=== PATIENT | male | born 1960 | race Caucasian/White ===

== ENCOUNTER 2020-05-24 22:07 | Inpatient (IN) ==
[2020-05-24] MEDS ORDERED: ASPIRIN CHEW 324 MG PO STA (22:22)
[2020-05-24 22:39] LABS: Basophils # (auto) 0.04 K/uL (0-0.2); Basophils % (auto) 0.4 %; Eosinophils % (auto) 4.4 %; Hematocrit (blood only) 42.7 % (42-52); Hemoglobin 14.5 g/dL (14.0-18.0); Immature Granulocytes # (auto) 0.02 K/uL (0.00-0.02); Immature Granulocytes % (auto) 0.2 %; Lymphocytes # (auto) 1.68 K/uL (1.2-3.4); Lymphocytes % (auto) 18.5 %; Mean Corpuscular Hemoglobin 30.7 pg (25-34); Mean Corpuscular Volume 90.5 fL (80-100); Mean Platelet Volume 9.8 fL (7.4-10.4); Monocytes # (auto) 0.52 K/uL (0.11-0.59); Monocytes % (auto) 5.7 %; Neutrophils # (auto) 6.42 K/uL (1.4-6.5); Neutrophils % (auto) 70.8 %; Platelet Count 253 K/uL (130-400); RDW Standard Deviation 42.9 fL (36.4-46.3); Red Blood Count 4.72 M/uL (4.7-6.1); White Blood Count 9.08 K/uL (4.8-10.8)
[2020-05-24 22:44] LABS: D Dimer 330 ug/L FEU (0-500); Partial Thromboplastin Time 29.2 Seconds (21.0-31.0); Prothrombin Time 10.3 Seconds (9.0-12.0)
[2020-05-24 22:48] LABS: Albumin Level 3.7 gm/dl (3.4-5.0); BUN Creatinine Ratio 9.4 (10-20); Creatinine Clr Calc Pharmacy 84.1 ml/min; Est GFR (Non-African American) 70.8; Potassium 3.7 mmol/L (3.5-5.1)
[2020-05-24 22:55] LABS: Bilirubin,Total 0.3 mg/dl (0.2-1); Globulin 3.5 gm/dl (2.5-4.0); Total Protein 7.2 gm/dl (6.4-8.2); Troponin I 0.751 ng/ml (0-0.045)
[2020-05-24] MEDS ORDERED: MoRPHine SULFATE 2 MG/ML CARP IV STA (23:00)
[2020-05-24] MEDS ORDERED: HEPARIN SODIUM/DEXTROSE 25,000 UNITS/500 ML BAG IV SCH (23:45)
[2020-05-24] MEDS ORDERED: Heparin IV Low Dose WITH Bolus STA (23:50)
[2020-05-24] MEDS ORDERED: NITROGLYCERIN 2% OINTMENT 30GM TUBE EXT ONE (23:51)
--- NOTE | 2020-05-25 00:06 | Emergency Department Note ---
History of Present Illness General Chief Complaint: Chest Pain Stated Complaint: CHEST PAIN Time Seen by Provider: 05/24/20 22:15 History of Present Illness Provider Complaint: chest pain Time: 20:00 Duration: improved Onset: during rest Pain Location: substernal Pain Radiation: neck Severity: mild Maximum Pain Intensity: 4 Current Pain Intensity: 4 Quality: + aching Relieved By: + nitroglycerin (3 sublingual nitro given by EMS) and + other (Morphine 4 mg given by EMS) Exacerbated By: + nothing Context: no recent illness, no recent surgery, no recent immobilization, no recent travel, no trauma/injury and no history of DVT/PE Associated symptoms: + dyspnea; no nausea, no vomiting, no diaphoresis and no syncope Treatments prior to arrival: nitroglycerin (3 sublingual nitroglycerin) Patient states he has a history of multiple stents and CABG. Patient states he has a history of cocaine abuse but has not used cocaine recently. 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 Home Medications Home Medications Medication Instructions Recorded Confirmed Type Statin Pill 1 tab PO DAILY 05/24/20 05/24/20 History Unknown Bp Pill 1 tab PO DAILY 05/24/20 05/24/20 History aspirin [Aspir-81] 81 mg PO DAILY 05/24/20 05/24/20 History duloxetine [Cymbalta] 0 mg PO DAILY 05/24/20 05/24/20 History glipizide 0 mg PO DAILY 05/24/20 05/24/20 History isosorbide mononitrate [Imdur] 0 mg PO DAILY 05/24/20 05/24/20 History metoprolol succinate 0 mg PO DAILY 05/24/20 05/24/20 History ticagrelor [Brilinta] 0 mg PO BID 05/24/20 05/24/20 History Allergies Allergy/AdvReac Type Severity Reaction Status Date / Time No Known Allergies Allergy Unverified 05/24/20 23:09 Past Med/Surg History Medical History (Updated 05/25/20 @ 00:13 by Jefe Granado) CAD (coronary artery disease) HLD (hyperlipidemia) HTN (hypertension) No pertinent family history Surgical History (Updated 05/25/20 @ 00:07 by Jefe Granado) H/O heart artery stent S/P CABG (coronary artery bypass graft) Social History (Updated 10/16/20 @ 00:07 by Jefe Call Smoking Status: Current every day smoker Tobacco Type: Cigarettes Hx Substance Use: Yes Non-Prescribed Medications: Crack / Cocaine Feels Safe at Home: Yes Review of Systems A total of 10 systems reviewed and were otherwise negative Physical Exam Vital Signs Vital Signs - 24 hr 05/24/20 22:25 Temperature 36.6 C Temperature Source Oral Pulse Rate 71 Respiratory Rate 16 Respiratory Effort / Characteristics Non-Labored Spontaneous Respiratory Depth Normal Respiratory Pattern Regular Blood Pressure 145/95 H Blood Pressure Mean 111 Pulse Oximetry 96 Oxygen Delivery Method Room Air Sepsis Recent Fever Within 48 Hours No Sepsis New/Unexplained Change in Mental Status N/A Sepsis Action Taken by Nursing No Action Required Physical Exam GENERAL: He is oriented to person, place, and time. He appears well-developed and well-nourished. He does not appear distressed. HENT: Exam performed. - Head: Normocephalic and atraumatic. - Right Ear: External ear normal. No mastoid tenderness. - Left Ear: External ear normal. No mastoid tenderness. - Mouth/Throat: The oropharynx is clear and moist. No trismus in the jaw. No dental abscesses or uvula swelling. No oropharyngeal exudate or tonsillar abscesses. EYES: Conjunctivae and EOM are normal. Pupils are equal, round, and reactive to light. Right eye exhibits no discharge. Left eye exhibits no discharge. No scleral icterus. NECK: Normal range of motion. Neck supple. No JVD present. No spinous process tenderness present. No carotid bruit present. No rigidity. No tracheal deviation and normal range of motion present. No Brudzinski's sign and no Kernig's sign noted. CV: Normal rate, regular rhythm, normal heart sounds and intact distal pulses. There is no peripheral edema. Palpable radial pulses bue. PULM/CHEST: Effort normal and breath sounds normal. No respiratory distress. No stridor. He has no wheezes. He has no rales. - Chest Wall: He exhibits no tenderness. ABD: The abdomen is soft. Bowel sounds are normal. He has no distension. No mass is present. There is no tenderness. There is no rebound, no guarding, no Betancourt's sign and no tenderness at McBurney's point. Rovsig negative. MUSC/SKEL: Normal range of motion. There is no peripheral edema, tenderness or deformity. LYMPH: No cervical adenopathy. NEURO: He is alert and oriented to person, place, and time. He has normal strength. No cranial nerve deficit or sensory deficit. Coordination and gait normal. GCS eye subscore is 4. GCS verbal subscore is 5. GCS motor subscore is 6. Cerebellar tests wnl. SKIN: Skin is warm and dry. He is not diaphoretic. PSYCH: He has a normal mood and affect. Behavior is normal. Judgment and thought content normal. Course Course 2214: The patient was evaluated in room B7. A complete history and physical exam was performed. Cardiac monitoring: An order was placed for continuous cardiac monitoring. The monitor shows a rate of 70 with sinus rhythm 0008: Vital signs stable. Labs show an elevated troponin. Patient was reporting increasing pain so another dose of morphine was given. Patient was started on Nitropaste. Patient will be started on heparin for NSTEMI. Patient admitted to [facility] Dr. Garcia. Administered Medications Discontinued Medications Aspirin (Aspirin Chew 324 Mg) 324 mg PO NOW STA Stop: 05/24/20 22:23 Last Admin: 05/24/20 22:32 Dose: 324 mg Documented by: [id number] Morphine Sulfate (Morphine Sulfate 2 Mg/Ml Carp) 2 mg IV NOW STA Stop: 05/24/20 23:01 Last Admin: 05/24/20 23:15 Dose: 2 mg Documented by: [id number] Medical Decision Making Laboratory Data Result diagrams: 05/24/20 22:26 05/24/20 22:26 Labs: Lab Results 05/24/20 05/24/20 05/24/20 Range/Units 22:26 22:26 22:26 WBC 9.08 (4.8-10.8) K/uL RBC 4.72 (4.7-6.1) M/uL Hgb 14.5 (14.0-18.0) g/dL Hct 42.7 (42-52) % MCV 90.5 (80-100) fL MCH 30.7 (25-34) pg MCHC 34.0 (32-36) g/dL RDW Std Deviation 42.9 (36.4-46.3) fL RDW Coeff of Mehdi 13.0 (11.5-14.5) % Plt Count 253 (130-400) K/uL MPV 9.8 (7.4-10.4) fL Immature Gran % (Auto) 0.2 % Neut % (Auto) 70.8 % Lymph % (Auto) 18.5 % Vance % (Auto) 5.7 % Eos % (Auto) 4.4 % Baso % (Auto) 0.4 % Neut # (Auto) 6.42 (1.4-6.5) K/uL Lymph # (Auto) 1.68 (1.2-3.4) K/uL Vance # (Auto) 0.52 (0.11-0.59) K/uL Eos # (Auto) 0.40 (0-0.5) K/uL Baso # (Auto) 0.04 (0-0.2) K/uL Immature Gran # (Auto) 0.02 (0.00-0.02) K/uL PT 10.3 (9.0-12.0) Seconds INR 1.0 (0.9-1.1) APTT 29.2 (21.0-31.0) Seconds PTT Ratio 1.0 D-Dimer 330 (0-500) ug/L FEU Sodium 138 (136-145) mmol/L Potassium 3.7 (3.5-5.1) mmol/L Chloride 106 (98-107) mmol/L Carbon Dioxide 26 (21-32) mmol/L Anion Gap 7.0 (3-11) BUN 11 (7-18) mg/dl Creatinine 1.13 (0.6-1.4) mg/dl Est Cr Clr Drug Dosing 84.1 ml/min Est GFR ( Amer) 82.0 Est GFR (Non-Af Amer) 70.8 BUN/Creatinine Ratio 9.4 L (10-20) Glucose 271 H (70-99) mg/dl Calcium 10.0 (8.5-10.1) mg/dl Total Bilirubin 0.3 (0.2-1) mg/dl AST 21 (15-37) U/L ALT 30 (12-78) U/L Alkaline Phosphatase 82 (45-117) U/L Troponin I 0.751 H* (0-0.045) ng/ml Total Protein 7.2 (6.4-8.2) gm/dl Albumin 3.7 (3.4-5.0) gm/dl Globulin 3.5 (2.5-4.0) gm/dl Albumin/Globulin Ratio 1.0 (0.9-2) Lipase 137 (73-393) U/L Imaging Data Chest x-ray: Radiologist's impression: Chest x-ray negative. Airway clear. No pneumothorax. No consolidation. No cardiomegaly or cephalization.. No free air under the diaphragm. No fractures of the skeletal structures. ECG Data Indication: chest pain Rate (beats per minute): 71 Rhythm: normal sinus Findings: + LBBB, + RBBB and + T-wave inversion (Leads aVL, V1, V2); no ST depression and no ST elevation Additional Comments: DE and QTc intervals within normal limits. QRS 160. Bifascicular block present. [facility] Narrative 2215: The patient was evaluated in room B7. A complete history and physical exam was performed. Cardiac monitoring: An order was placed for continuous cardiac monitoring. The monitor shows a rate of 70 with sinus rhythm 0008: Vital signs stable. Labs show an elevated troponin. Patient was reporting increasing pain so another dose of morphine was given. Patient was started on Nitropaste. Patient will be started on heparin for NSTEMI. Patient admitted to [facility] Dr. Garcia. Impression & Plan Non-ST elevation (NSTEMI) myocardial infarction Critical Care Time Critical Care Time: Yes Total Critical Care Time: 59 I have personally spent greater than 59 minutes of critical care time in the direct management of this patient. This includes bedside care, interpretation of diagnostic studies, and testing, discussion with consultants, patient, and family members, and other required patient management activities. This 59 minutes is in excess of all separately billable procedures. Discharge Plan Visit Data Chief Complaint: Chest Pain Stated Complaint: CHEST PAIN ED Provider: Jefe Granado Discharge Problem: Non-ST elevation (NSTEMI) myocardial infarction Patient Disposition: Admitted As Inpatient Forms Stand Alone Forms: My [facility] Prescriptions Prescriptions: No Action isosorbide mononitrate [Imdur] 30 mg Tablet Extended Release 24 Hr 0 mg PO DAILY RF: 0 aspirin [Aspir-81] 81 mg Tablet,Delayed Release (Dr/Ec) 81 mg PO DAILY RF: 0 metoprolol succinate 25 mg Tablet Extended Release 24 Hr 0 mg PO DAILY RF: 0 glipizide 5 mg Tablet 0 mg PO DAILY RF: 0 duloxetine [Cymbalta] 20 mg Capsule,Delayed Release(Dr/Ec) 0 mg PO DAILY RF: 0 Brilinta 60 mg Tablet 0 mg PO BID RF: 0 Statin Pill 1 tab PO DAILY RF: 0 Unknown Bp Pill 1 tab PO DAILY RF: 0 Referrals Referrals: PCP,NO [Primary Care Provider] -
--- NOTE | 2020-05-25 00:10 | History & Physical Report ---
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 Patient describes feeling a pressure pain deep in his chest that he rates at about a 20/10. He thought that perhaps this was secondary to the hotdogs he ate for dinner but when it did not azar and the fact that the pain reminded him of previous anginal episodes he decided to present to hospital. Pain is substernal but he also had some pain right between his shoulder blades just right of midline. He's not sure if this is radiation or it's own separate pain. He is not feeling short of breath denies nausea and vomiting, denies sweats, fevers, chills, cough, palpitations, prescyncope or syncope. He has a history of CAD s/p multiple stents and stent occlusion and revisions. Tells me he is unaware of any previous STEMI though knows he has bad CAD. Tells me he thinks his last echo was normal. He has some compliance with his medications though he cannot remember all of them and tells me he sometimes only takes one dose of his BID meds. Today he took metoprolol but notes that he believes the pills he took were at least one year old and was wondering if that effects their potency. He is on a daily aspirin ticagrelor, statin, and metoprolol but does not always take these as prescribed. He is from [place] and his previous interventions have been done there. Patient received 4-5 doses of nitrates which greatly decreased his pain but did not make it wholly disappear. On presentation to ED patient had vitals WNL, labwork significant for elevated glucose to 271 and elevated troponin to .751. EKG significant for bifascibular block and normal sinus rhythm, no acute ST segment changes. Chest XR negative. Allergies Allergy/AdvReac Type Severity Reaction Status Date / Time No Known Allergies Allergy Unverified 05/24/20 23:09 Home Medications Home Medications Medication Instructions Recorded Confirmed Type Brilinta 0 mg PO BID 05/24/20 05/24/20 History Statin Pill 1 tab PO DAILY 05/24/20 05/24/20 History Unknown Bp Pill 1 tab PO DAILY 05/24/20 05/24/20 History aspirin 81 mg PO DAILY 05/24/20 05/24/20 History duloxetine [Cymbalta] 0 mg PO DAILY 05/24/20 05/24/20 History glipizide 0 mg PO DAILY 05/24/20 05/24/20 History isosorbide mononitrate 0 mg PO DAILY 05/24/20 05/24/20 History metoprolol succinate 0 mg PO DAILY 05/24/20 05/24/20 History varenicline [Chantix Starting 1 ea PO UD #53 ea 05/26/20 Rx Month Box] Past Med/Surg History Medical History (Updated 05/25/20 @ 00:13 by Jefe Granado) CAD (coronary artery disease) HLD (hyperlipidemia) HTN (hypertension) No pertinent family history Surgical History (Updated 05/25/20 @ 00:07 by Jefe Granado) H/O heart artery stent S/P CABG (coronary artery bypass graft) Social History (Updated 05/25/20 @ 00:07 by Jefe Granado) Smoking Status: Heavy tobacco smoker Tobacco Type: Cigarettes Hx Alcohol Use: Yes Alcohol type: beer Hx Substance Use: No Preferred Language: [place] Citizen Communication Ability: Effective Auto Wheel Alignment Specialist Required: No Beliefs That Will Affect Care: None Current Living Situation: Alone Feels Safe at Home: Yes Assistive Devices: None Review of Systems Review of Systems: All systems reviewed & are unremarkable except as noted in HPI & below Physical Exam Constitutional: well developed, well nourished, + acute distress, + ill appearing and average body habitus Eyes: PERRL, conjunctivae normal, anicteric sclerae ENMT: external ear and nose normal, oropharynx normal Respiratory: normal respiratory effort, lungs clear to auscultation Cardiovascular: Rate/Rhythm: regular rate and regular rhythm Heart Sounds: no gallop, no murmur and no cardiac rub Extremities: no calf tenderness, no pedal edema and no edema Gastrointestinal (Abdomen): normal bowel sounds, soft, nontender, no hepatosplenomegaly Musculoskeletal: no cyanosis or clubbing, extremities motor strength 5/5 Skin: no rashes, warm and dry Neurologic: patellar DTR's 2+ bilat, sensation intact and PERRL, EOMI, accommodation nl, no face palsy, no dysarthria Psychiatric: Orientation: alert and oriented x 3 Affect: + anxious affect Results & Data Results & Data ([facility]) Vital Signs (Past 12 Hours) Vital Signs Temp Pulse Resp BP Pulse Ox 05/24/20 22:25 36.6 C 71 16 145/95 H 96 Supervising Physician Co-Signing Physician Notes Attending addendum: I have physically seen this patient, have supervised the medical residents activities, and agree with the H&P unless as otherwise noted. Assessment and Plan: Non-STEMI/CAD/hypertension/history of multiple stents- The patient will be admitted to telemetry for serial cardiac enzymes, serial EKG's, cardiac rhythm monitoring and a 2-D echocardiogram with Dopplers. Continue aspirin 81 mg daily, Brilinta 90 mg p.o. twice daily, metoprolol succinate [address] on Nitropaste 1 inch anterior chest wall every [address] heparin drip standard protocol with 3000 units IV bolus Consult cardiology Hyperlipidemia- Patient does not know the name of his current medication. Place on Lipitor 80 mg daily Check a fasting lipid panel Diabetes mellitus- Hold glipizide. Patient Accu-Cheks before meals and at bedtime with NovoLog coverage per scale Check a hemoglobin A1c Remaining orders and notations as noted Resident Activity Tracking Resident Involvement: Resident Care Provided Care Provided: Adult [facility]
[2020-05-25] MEDS ORDERED: HEPARIN SOD 5,000 UNIT/0.5 ML VIAL ONE (00:13)
[2020-05-25] MEDS ORDERED: SODIUM CHLORIDE 0.9% 1000ML 1,000 ML IV SCH ×2 (00:15→15:45)
[2020-05-25] MEDS ORDERED: MoRPHine SULFATE 2 MG/ML CARP IV PRN (02:03)
[2020-05-25] MEDS ORDERED: ONDANSETRON INJ 2 MG/ML 2 ML VIAL IV PRN (02:03)
[2020-05-25] MEDS ORDERED: POLYETHYLENE (MIRALAX) 17 GM PACK PO PRN (02:03)
[2020-05-25] MEDS ORDERED: NITROGLYCERIN SL 0.4 MG/TAB TAB SL PRN (02:03)
[2020-05-25] MEDS: NSS + 20MEQ KCL 20 MEQ/1,000 ML BAG IV SCH ×2 (02:21→11:56)
[2020-05-25] MEDS ORDERED: OPTIRAY 320 125ml IV ONE (02:48)
[2020-05-25 06:27] LABS: Partial Thromboplastin Ratio 1.6; Partial Thromboplastin Time 44.4 Seconds (21.0-31.0)
[2020-05-25] MEDS ORDERED: HEPARIN IV BOLUS 4,000 UNITS in SYRINGE 0 ML IV ONE ×2 (06:32→13:30)
--- NOTE | 2020-05-25 06:37 | XRay Report ---
XR chest 1V portable HISTORY: 59 years-old Male Chest Pain acute atypical chest pain COMPARISON: CTA of the chest 05/25/2020 TECHNIQUE: Portable AP view of the chest FINDINGS: Cardiac silhouette is upper limits of normal in size. Prior median sternotomy and CABG. Emphysema. Az ygos lobe and fissure. No pneumothorax, pleural effusion, airspace consolidation or overt pulmonary e herbert. Degenerative changes of the shoulders and spine. IMPRESSION: Emphysema without acute process. ACT 112: Negative or not required by law. The above report was generated using voice recognition software. It may contain grammatical, syntax o r spelling errors. Electronically signed by: Rashaun Casper M.D. 05/25/2020 6:36 AM
--- NOTE | 2020-05-25 06:46 | CT Scan Report ---
CT ANGIOGRAPHY OF THE CHEST, PULMONARY EMBOLUS PROTOCOL CLINICAL HISTORY: Chest discomfort. Evaluate for pulmonary embolus. COMPARISON STUDY: Chest radiograph May 24, 2020. TECHNIQUE: Following IV administration of 112 mL of Optiray-320, helical axial images of the chest we re obtained utilizing the pulmonary embolus protocol. Maximal intensity projections and sagittal and coronal reformats were viewed on an independent 3D workstation. IV contrast was administered withou t complication. Automated exposure control was utilized for the study. A dose lowering technique wa s utilized adhering to the principles of ALARA. CT DOSE: 808.20 mGy.cm FINDINGS: No pulmonary embolus is present. There are median sternotomy wires. Mild cardiomegaly is n oted. There is no pericardial effusion. No enlarged axillary, mediastinal or hilar lymph nodes are pr esent. There is no pericardial effusion. Extensive coronary artery calcification. Azygos fissure is n oted. No pneumothorax or pleural effusion is noted. There is mild upper lobe predominant emphysema. T here is no consolidation. There are no pulmonary nodules. No pneumothorax or pleural effusion is note d. Bony thorax and upper abdomen are unremarkable. IMPRESSION: 1. No pulmonary emboli identified. 2. No acute process within the chest. 3. Mild cardiomegaly and extensive coronary artery calcification. 4. Mild emphysema. ACT 112: Negative or not required by law. Electronically signed by: Matt Guerrero M.D. 05/25/2020 6:45 AM
[2020-05-25 08:23] LABS: Estimated Average Glucose 143 mg/dl; Hemoglobin A1C 6.6 % (4.5-5.6)
--- NOTE | 2020-05-25 10:32 | Electrocardiogram Report ---
Test Reason : Blood Pressure : / mmHG Vent. Rate : 071 BPM Atrial Rate : 071 BPM P-R Int : 188 ms QRS Dur : 160 ms QT Int : 440 ms P-R-T Axes : 055 -72 078 degrees QTc Int : 478 ms Normal sinus rhythm Right bundle branch block Left anterior fascicular block Bifascicular block Left ventricular hypertrophy with repolarization abnormality Abnormal ECG No previous ECGs available Confirmed by Dhaval Ayers ([id number]) on 05/25/2020 10:32:00 AM Referred By: REFERRED SELF Confirmed By:Dhaval Ayers
[2020-05-25] MEDS: NICOTINE 14 MG/24 HR PATCH TD SCH (10:46)
[2020-05-25] MEDS: ASPIRIN 81 MG ECTAB PO SCH (10:47)
[2020-05-25] MEDS: DULoxetine HCL 20 MG CAP PO SCH (10:47)
[2020-05-25] MEDS: TICAGRELOR 90 MG TAB PO SCH ×2 (10:47→21:39)
[2020-05-25] MEDS: METOPROLOL SUCC 25MG EXT REL TAB PO SCH (10:48)
--- NOTE | 2020-05-25 12:36 | Cardiology Consultation ---
Date of Consultation May 25, 2020 Assessment & Plan (1) Non-ST elevation (NSTEMI) myocardial infarction: 2. Chronic multivessel disease, most recently with repeat stent placement to left main 01/2020 3. Ischemic cardiomyopathy/chronic systolic heart failureEF 40% 4. Type 2 diabetes 5. Hypertension 6. Dyslipidemia 7. Tobacco abuse Patient with complex multivessel disease including recent protected left main stenting. Now admitted with recurrent chest pain and significant troponin elevation. Plan to proceed with repeat cardiac catheterization via femoral artery later today. In interim continue DAPT with aspirin, ticagrelor, continue heparin infusion, continue beta-katherine, resume home statin. Further recommendations pending findings of coronary angiography. History of Present Illness Attending Physician: Bean Sneed DO History of Present Illness Mr. Plaza is a 59-year-old man with a history of complex coronary artery disease admitted yesterday with acute onset chest pain, NSTEMI. 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 Pain reminiscent of prior anginal symptoms. Ongoing chest pain on arrival to ED. Improved with nitroglycerin, morphine, aspirin and heparin infusion. Initial EKG showed chronic right bundle branch block, left anterior fascicular block. Initial troponin 0.75 and is trended up to 11.7 this morning. Currently patient chest pain-free. Prior to symptoms last night no recent increase in stable angina. Has been taking DAPT with Brilinta without interruption. Prior cardiac history remarkable for MS in 2000 requiring CABG (RUSSELL to LAD, SVG to diagonal+marginal, SVG to PDA). Since that time has had multiple PCI with stent placement, most recently by his primary mountain services manager Dr. Francois at [facility] in [place] 01/2020. Catheterization at that time revealed, viviane re acute left main disease, occluded ostial LAD, chronically occluded proximal RCA with jymu-de-segjk collaterals. Vein graft to RCA and jump graft to diagonal occluded. RUSSELL to LAD, SVG to marginal 1 widely patent. Left main into circumflex stented with 4.0 x 28 mm DEN. EF at that time 40% with inferior hypokinesis. Other medical issues include hypertension, type 2 diabetes on oral therapy, dyslipidemia, history of drug abuse, anxiety/depression, BPH Family history Father secondary to heart disease. Social history lives alone, , no children. 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 Social alc ohol, ongoing tobacco abuse Allergies Allergy/AdvReac Type Severity Reaction Status Date / Time No Known Allergies Allergy Unverified 05/24/20 23:09 Home Medications Home Medications Medication Instructions Recorded Confirmed Type Statin Pill 1 tab PO DAILY 05/24/20 05/24/20 History Unknown Bp Pill 1 tab PO DAILY 05/24/20 05/24/20 History aspirin [Aspir-81] 81 mg PO DAILY 05/24/20 05/24/20 History duloxetine [Cymbalta] 0 mg PO DAILY 05/24/20 05/24/20 History glipizide 0 mg PO DAILY 05/24/20 05/24/20 History isosorbide mononitrate [Imdur] 0 mg PO DAILY 05/24/20 05/24/20 History metoprolol succinate 0 mg PO DAILY 05/24/20 05/24/20 History ticagrelor [Brilinta] 0 mg PO BID 05/24/20 05/24/20 History Patient History Medical History (Updated 05/25/20 @ 00:13 by Jefe Granado) CAD (coronary artery disease) HLD (hyperlipidemia) HTN (hypertension) No pertinent family history Surgical History (Updated 05/25/20 @ 00:07 by Jefe Granado) H/O heart artery stent S/P CABG (coronary artery bypass graft) Social History (Updated 05/25/20 @ 00:07 by Jefe Schillingha) Smoking Status: Heavy tobacco smoker Tobacco Type: Cigarettes Hx Alcohol Use: Yes Alcohol type: beer Hx Substance Use: Yes Non-Prescribed Medications: Crack / Cocaine Preferred Language: Citizen Of [place] Communication Ability: Effective Offset Plate Preparation Supervisor Required: No Beliefs That Will Affect Care: None Current Living Situation: Alone Feels Safe at Home: Yes Safety Concerns: Feels Safe At This Time Assistive Devices: None Review of Systems Review of Systems: All systems reviewed & are unremarkable except as noted in HPI & below Physical Exam Physical Exam: General: Comfortable, no acute distress HEENT: Sclerae anicteric, mucous membranes moist Lungs: Clear to auscultation bilaterally, no rhonchi or wheezes Cardiac: Regular rate and rhythm, no murmurs. Abdomen: Soft, nontender, nondistended, positive bowel sounds. Extremities: Warm, well perfused, no edema. 2+ radial pulses Skin: No rashes or lesions. Neuro: Nonfocal Psych: Alert orient x3, normal affect and mood Results & Data ([facility]) Vital Signs (Past 12 Hours) Vital Signs Temp Pulse Pulse Resp BP BP Pulse Ox 05/25/20 11:56 97.9 F 58 L 18 131/75 94 05/25/20 09:25 53 L 05/25/20 04:00 98.1 F 52 L 15 104/63 98 05/25/20 02:10 98.1 F 51 L 20 104/69 95 05/25/20 01:00 69 18 115/75 97 05/25/20 00:45 62 18 102/65 91 05/25/20 00:30 64 18 116/70 92 PG Care Time/CCT Total # of Minutes Spent Total Time Spent with Patient: Total time spent is greater than 50% in coordination of care (as documented) at patient's floor/unit and/or counseling patient: Coding Level of Care Code 69659 Inpt Consult Level 4 Diagnoses Non-ST elevation (NSTEMI) myocardial infarction I21.4
[2020-05-25 12:56] LABS: Partial Thromboplastin Ratio 1.5; Partial Thromboplastin Time 41.6 Seconds (21.0-31.0)
[2020-05-25] MEDS ORDERED: NITROGLYCERIN/D5W 100MCG/ML 20ML SYR ONE (13:17)
[2020-05-25] MEDS ORDERED: MIDAZOLAM HCL 1 MG/ML 2ML VIAL ONE ×2 (13:17→14:25)
[2020-05-25] MEDS ORDERED: fentaNYL citrate 100 MCG/2 ML VIAL ONE ×2 (13:17→14:24)
[2020-05-25] MEDS ORDERED: niCARdipine HCL INJ 2.5 MG/ML 10 ML AMP ONE (13:17)
[2020-05-25] MEDS ORDERED: HEPARIN (PORCINE) 1000 UNIT/ML 10 ML (CATH LAB USE ONLY) ONE ×2 (13:18→15:02)
--- NOTE | 2020-05-25 13:38 | Pre Anesthesia Assessment ---
Date of Service May 25, 2020 Pre Sedation Assessment Vital Signs Temp Pulse Pulse Resp BP BP Pulse Ox 05/25/20 11:56 97.9 F 58 L 18 131/75 94 05/25/20 09:25 53 L 05/25/20 04:00 98.1 F 52 L 15 104/63 98 05/25/20 02:10 98.1 F 51 L 20 104/69 95 05/25/20 01:00 69 18 115/75 97 05/25/20 00:45 62 18 102/65 91 05/25/20 00:30 64 18 116/70 92 05/25/20 00:10 63 18 91 05/25/20 00:00 18 111/69 95 05/24/20 23:30 18 127/85 93 05/24/20 23:00 61 18 116/70 93 05/24/20 22:25 97.9 F 71 16 145/95 H 96 Cardiovascular RRR, no murmur, no edema Respiratory normal respiratory effort, lungs clear to auscultation Pre-Sedation Airway Assessment Smoking Status: Heavy tobacco smoker Hx Sleep Apnea: No Hx Difficult Intubation: No Short, Thick Neck: No Thyromental Distance: > or= 3.5 Finger Breadths Oral Cavity: + WNL Mallampati Class: III ASA: ASA3 NPO Status Date of Last Intake of Fluids: 05/24/20 Time of Last Intake of Fluids: 19:00 Date of Last Intake of Solid Food: 05/24/20 Time of Last Intake of Solid Foods: 19:00 Procedure Planning Contraindications for Sedation: none Current Medications Reviewed: Yes Notes The planned sedation has been discussed with the patient. Informed Consent was obtained. I have identified the patient, determined the appropriateness of sedation and have assessed the patient immediately prior to the procedure. All medicine(s) and interventions are by my order.
--- NOTE | 2020-05-25 15:16 | Post Anesthesia Assessment ---
Date of Service May 25, 2020 Post Sedation Assessment Vital Signs Temp Pulse Pulse Resp BP BP Pulse Ox 05/25/20 11:56 97.9 F 58 L 18 131/75 94 05/25/20 09:25 53 L 05/25/20 04:00 98.1 F 52 L 15 104/63 98 05/25/20 02:10 98.1 F 51 L 20 104/69 95 05/25/20 01:00 69 18 115/75 97 05/25/20 00:45 62 18 102/65 91 05/25/20 00:30 64 18 116/70 92 05/25/20 00:10 63 18 91 05/25/20 00:00 18 111/69 95 05/24/20 23:30 18 127/85 93 05/24/20 23:00 61 18 116/70 93 05/24/20 22:25 97.9 F 71 16 145/95 H 96 Recovery Score Activity: Moves 4 extremities Respiration: Deep Breath/Cough Circulation: +/-20% PreAnes Value Consciousness: Fully Awake Oxygen Saturation: O2 needed for >90% Discharge Sedation Level of Care: Fast Track Phase II Post Sedation Plan On clinical assessment, the patient appears to have tolerated the sedation without complications. Patient is recovering as anticipated. Patient will continue to be monitored by nursing and may be discharged when sedation discharge criteria are met per below protocol. Upon Completions of procedure up to 15 minutes continue every 5 minute vital signs and the P.A.R. score; then discharge to a Phase I or Fast Track to Phase II per the following guidelines: * Discharge Patient to appropriate Phase II area if PAR is 8 or greater or return to pre- procedure baseline. The post - procedure orders will be as directed. * If PAR score is less than 8 or not return to pre-procedure baseline then patient will follow Phase I monitoring till PAR is reached for Phase II. The Phase I may be done in procedure room or may call to secure a Phase I area. * If naloxone or flumazenil are used for reversal, hold in Phase I for continued monitoring from when last reversal dose was given for a minimum of 60 minutes or longer pending the nurse and/or physician discretion of patient condition before discharge to Phase II. Please call the Sedation Physician to re-evaluate and complete post-note for discharge to Phase II area. Do NOT discharge from procedure sedation or Phase 1 until post- sedation evaluation note is complete by procedure /sedation MD Sedation Discharge Instructions to be given to the patient at discharge to home.
--- NOTE | 2020-05-25 15:31 | Cardiac Catheterization ---
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 Clinical evaluation leading to the procedure CAD Presenation: Non STEMI Heart Failure: No Cardiogenic Shock within 24 Hours: No Cardiac Arrest within 24 Hours: No Imaging Studies Past 6 Months: Yes Stress Studies Past 6 Months: No Diagnostic Physicians Name: Valdez Villafuerte MD Status: Elective Closure Device Percutaneous Entry Location: Femoral Closure Device: Angio-Seal Recommendations: PCI without planned CABG PCI Indication: PCI for high risk Non-RIYA Lesion Segment Name: SVG to diagonal anastomosis Culprit Artery: Yes Stenosis Prior to Rx (%): 95 Chronic Total Occlusion: No IVUS: No FFR: No Pre-Procedure ALICIA Flow: 3 Previously Treated Lesion: No Lesion Complexity: High/C Lesion Length (mm): 10 Thrombus Present: Yes Bifurcation Lesion: No Guidewire Across Lesion: Stenosis Post-Procedure (%): 0 Post-Procedure ALICIA Flow: 3 Devices(s) Deployed: Yes Yes Intraprocedure Events Significant Disection: No Perforation: No Cardiac Cath Procedure Full Procedure Date May 25, 2020 Pre-Procedure Diagnosis Pre-Procedure Diagnosis: Non STEMI AUC Score AUC Score: 8 Post-Procedure Diagnosis Post-Procedure Diagnosis: Severe CAD, Successful PCI and Normal Intracardiac Pressures Procedure(s) Performed Procedure(s) Performed: Coronary Angiography, Left Heart Cath, Drug Eluting Stent, Bypass Graft Angiography and Femoral Artery Angiography Tooling Inspector Valdez Villafuerte MD Survey And Mapping Technician(s) Gera Estimated Blood Loss Estimated Blood Loss: 15 Medication(s) Medication(s): Fentanyl, Heparin, Lidocaine 1%, Nicardipine, Nitroglycerin and Versed Medication(s): Ticagrelor Summary of Findings Indication: High risk NSTEMI History of coronary artery disease post remote four-vessel CABG (known occluded SVG to RCA, jump graft to marginal), multiple prior PCI most recently DEN from left main into circumflex 01/2020 at outside facility. Access: 6FR right common femoral artery under ultrasound guidance Catheters: JL4, JR4, JR4 guide Findings: LM -prior stent widely patent LAD -100% chronic occlusion at ostium Circumflex -stent from left main to mid segment widely patent. OM1 30% proximal disease, mid segment stent widely patent. OM 2 small without significant disease and retrofills prior vein graft without competitive flow. Distal vessel gives off dgoh-gu-sbkox collaterals. RCA -dominant, 20% proximal chronic total occlusion. Fills via zyrg-vp-rugah collaterals. RUSSELL to LADwidely patent SVG to kfgnjlys78% acute stenosis at anastomosis, ione vessel without signi ficant disease and provides left to right collaterals to PDA Jump graft to marginal occluded SVG to RCAknown to be occluded LVEDP -12 -- PCI -- Antithrombotic therapy: Heparin, ticagrelor Procedure: SVG to diagonal cannulated with JR4 guide and a telescope support catheter Long whisper wire passed across lesion into distal diagonal SVG to diagonal anastomotic lesion predilated with 2.0 compliant balloon Whisper wire exchanged for mailman wire Dilated lesion stented with 2.25 x 18 mm Rito drug-eluting stent Stent post-dilated with 2.5 noncompliant balloon IC vasodilators administered for spasm Post procedure ALICIA 3 flow, stent well expanded with minimal residual stenosis and no apparent cardiac complications. Arterial Closure: Angio-Seal Summary: 1. Severe multivessel chronic ione coronary artery disease -Patent left main to circumflex stent, patent OM1 stent 100% ostial LAD chronic total occlusion 100% proximal RCA chronic total occlusion. Right fills via lmzk-sp-tsupy co llaterals 2. Acute 95% stenosis at vein graft to diagonal anastomosis 3. Patent RUSSELL to LAD 4. Known occluded SVG to RCA and jump graft to OM. 5. Normal intracardiac filling pressure 6. Successful PCI of SVG to diagonal anastomosis with single drug-eluting stent (2.25 x 18 mm Rito; postdilated with 2.5 NC). Recommendations: To PCU for continued monitoring Continue dual-antiplatelet therapy with aspirin, ticagrelor indefinitely Follow-up echocardiogram Outpatient follow-up, cardiac rehab back in [place] Hemodynamics Rest Ao:: 114/68/106 Final Ao: 123/57/87 LV: 124/12 Recommendations Recommendations: PCI without planned CABG Specimens Specimens: None Radiation Exposure (mGy) 5180 Contrast (mls) 160 Fluids (cc crystalloids) Fluids (cc crystalloids): 200 Drains Drains: None Anesthesia Moderate Procedural Complication(s) None Disposition PCU I attest to the content of the Intraoperative Record and any orders documented therein. Any exceptions are noted below. [facility] Card Cath Procedure Codes Cardiac Catheterization Procedure 1: Cardiovascular Cath Procedures: 03311 Coronaries & LHC (+/-LV) & Grafts/IM (arterial & venous) Therapeutic Services & Ancillary Proc Procedure 1: Cardiovascular Tx and Anc Procedures: 38222 Ultrasonic Guidance Vascular Access Moderate Sedation Procedure 1: Sedation/Anesthesia: 76613 Mod Sedation by the same physician;Init15 Min Child Age 5 & Up Procedure 2: Sedation/Anesthesia: 20116 Mod Sedation by the same physician; Ea [id number] Minutes Stenting Procedure 1: Cardiovascular Stent Procedures: 76699 Perc tranluminal revascularization of or throughout CABG PG Care Time/CCT Total # of Minutes Spent Total Time Spent with Patient: Total time spent is greater than 50% in coordination of care (as documented) at patient's floor/unit and/or counseling patient:
[2020-05-25] MEDS ORDERED: DEXTROSE 50% 50 ML SYRINGE IV PRN (15:52)
[2020-05-25] MEDS ORDERED: CARBOHYDRATES FOR HYPOGLYCEMIA PO PRN (15:52)
[2020-05-25] MEDS ORDERED: GLUCAGON FOR INJ 1 MG VIAL SQ PRN (15:52)
[2020-05-25] MEDS ORDERED: GLUCOSE 10 TABS/TUBE PO PRN (15:52)
[2020-05-25] MEDS ORDERED: GLUCOSE 40% GEL 15 GM TUBE PO PRN (15:52)
--- NOTE | 2020-05-25 15:56 | Medical Student Progress Note ---
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 1) NSTEMI - s/p coronary cath w/ Dr. Villafuerte 05/25 -Troponin: 11 Cath: Severe multivessel chronic [place] coronary artery disease -Patent left main to circumflex stent, patent OM1 stent 100% ostial LAD chronic total occlusion 100% proximal RCA chronic total occlusion. Right fills via lasg-nh-yazwh collaterals -Acute 95% stenosis at vein graft to diagonal anastomosis -Patent RUSSELL to LAD -Known occluded SVG to RCA and jump graft to OM. -Successful PCI of SVG to diagonal anastomosis with single drug-eluting stent -Continue duel antiplatelet therapy with aspirin, ticagrelor indefinitely -Continue metoprolol 20mg PO daily, atorvastatin 80mg PO daily -PCU for monitoring -F/u Echo -Outpatient follow up/cardiac rehab in [place] -ECG with chest pain 2) Tobacco Abuse -Must strongly encourage him to be tobacco free -Nicotine patches while inpatient. 3) DMII -Holding home glipizide -Placed on insulin sliding scale DVT PPx: None F/E/N: NPO in anticipation of cath in am Dispo: PCU Full Code Admission and Anticipated Discharge Date Admission Date: May 25, 2020 Supervising Attestation I personally examined the patient and verified all mcclendon points of history and exam, discussed case, and agree with decision making with Abdi Gan. feeling ok. smokes 1ppd. does have some depresison no si sometimes hi but no plan. hasn't had a serious attempt at quitting in a while has been taking meds more regularly vitals noted nad heent nc at mmm breathing unlabored no accessory muscles good effort skin no rashes no pallor or icterus severe diffuse CAD w NSTEMI - now stented. med management, secondary risk reduction. discussed importance of med adherence (seems to be easier - but will want to outline each med and why it's important) and discussed critical importance of smoke cessation. suspect that a combination of welbutrin and chantix might be viable option for him, nicotine replacement likely to just keep physiologic addiction going. depression/insomnia - notes he takes 100mg trazodone HS Subjective States that he has 2/10 chest pressure without any radiation to L arm or shoulder like he had earlier when he presented. He denies any shortness of silke th or orthopnea. He endorses constipation and occasional abdominal pain with eating. Review of Systems Constitutional: no fever, no chills, no sweats and no fatigue Respiratory: no cough, no chest congestion, no dyspnea and no pain on inspiration Cardiovascular: + chest pain; no dyspnea, no orthopnea and no palpitations Gastrointestinal: + abdominal pain and + constipation; no nausea and no vomiting Physical Exam Constitutional: Well appearing male in no acute distress, resting comfortably in bed. Respiratory: Lungs clear to auscultation bilaterally, no wheezes, rales or rhonchi. Normal work of breathing. Cardiovascular: Regular rate and rhythm, no murmurs, rubs or extra heart sounds. No JVD. No peripheral edema. Psychiatric: A+Ox3, euthymic affect Results & Data ([facility]) Vital Signs (Past 12 Hours) Vital Signs Temp Pulse Pulse Resp BP Pulse Ox 05/25/20 15:28 58 L 16 124/72 95 05/25/20 11:56 36.6 C 58 L 18 131/75 94 05/25/20 09:25 53 L 05/25/20 04:00 36.7 C 52 L 15 104/63 98
[2020-05-25] MEDS: INSULIN ASPART 100 UNITS/ML 3 ML PEN SC SCH ×2 (17:29→21:44)
--- NOTE | 2020-05-25 18:46 | Billing Data ---
Date of Service May 25, 2020 Coding Level of Care Code 70045 Subseq Hosp Care Lvl 3
[2020-05-25] MEDS ORDERED: Nursing to Pharmacy Communication SCH (20:30)
[2020-05-25] MEDS ORDERED: traZODone HCL 100 MG TAB PO SCH (21:00)
[2020-05-25] MEDS ORDERED: ATORVASTATIN 40 MG TAB PO SCH (21:00)
[2020-05-25] MEDS: ACETAMINOPHEN 325 MG TAB PO PRN (21:37)
[2020-05-26] MEDS: INSULIN ASPART 100 UNITS/ML 3 ML PEN SC SCH ×2 (07:52→11:48)
[2020-05-26] MEDS: NICOTINE 14 MG/24 HR PATCH TD SCH (07:55)
[2020-05-26] MEDS: METOPROLOL SUCC 25MG EXT REL TAB PO SCH (07:56)
[2020-05-26] MEDS: TICAGRELOR 90 MG TAB PO SCH (07:56)
[2020-05-26] MEDS: DULoxetine HCL 20 MG CAP PO SCH (07:56)
[2020-05-26] MEDS: ASPIRIN 81 MG ECTAB PO SCH (07:56)
[2020-05-26] MEDS: ACETAMINOPHEN 325 MG TAB PO PRN (08:01)
--- NOTE | 2020-05-26 08:31 | Hospitalist Progress Note ---
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 1) NSTEMI - s/p coronary cath w/ Dr. Villafuerte 05/25 -Troponin: 11 Cath: Severe multivessel chronic [place] coronary artery disease -Patent left main to circumflex stent, patent OM1 stent 100% ostial LAD chronic total occlusion 100% proximal RCA chronic total occlusion. Right fills via ybgh-pk-vbccl collaterals -Acute 95% stenosis at vein graft to diagonal anastomosis -Patent RUSSELL to LAD -Known occluded SVG to RCA and jump graft to OM. -Successful PCI of SVG to diagonal anastomosis with single drug-eluting stent -Continue duel antiplatelet therapy with aspirin, ticagrelor indefinitely -Continue metoprolol 20mg PO daily, atorvastatin 80mg PO daily -PCU for monitoring -F/u Echo -Outpatient follow up/cardiac rehab in [place] -ECG with chest pain 2) Tobacco Abuse -Must strongly encourage him to be tobacco free -Nicotine patches while inpatient. 3) DMII -Holding home glipizide -Placed on insulin sliding scale DVT PPx: None F/E/N: NPO in anticipation of cath in am Dispo: PCU Full Code Admission and Anticipated Discharge Date Admission Date: May 25, 2020 Results & Data Results & Data ([facility]) Vital Signs (Past 12 Hours) Vital Signs Temp Pulse Pulse Resp BP BP Pulse Ox 05/26/20 07:48 36.5 C 67 18 141/80 H 97 05/26/20 05:40 36.6 C 05/26/20 05:01 52 L 18 96/63 L 95 05/26/20 04:30 51 L 21 108/47 L 95 05/25/20 23:42 75 16 109/60 95
--- NOTE | 2020-05-26 10:59 | Cardiology Progress Note ---
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 1) NSTEMI - s/p coronary cath w/ Dr. Villafuerte 05/25 -Troponin: 11 Cath: Severe multivessel chronic [place] coronary artery disease -Patent left main to circumflex stent, patent OM1 stent 100% ostial LAD chronic total occlusion 100% proximal RCA chronic total occlusion. Right fills via edfi-qf-esxuw collaterals -Acute 95% stenosis at vein graft to diagonal anastomosis -Patent RUSSELL to LAD -Known occluded SVG to RCA and jump graft to OM. -Successful PCI of SVG to diagonal anastomosis with single drug-eluting stent -Continue duel antiplatelet therapy with aspirin, ticagrelor indefinitely -Continue metoprolol daily, atorvastatin 80mg PO daily -I would consider adding an LUCY inhibitor or angiotensin receptor katherine given the extent of his vascular disease and diabetes 2) Tobacco Abuse -Must strongly encourage him to be tobacco free -Nicotine patches while inpatient. 3) DMII -Holding home glipizide -Consider Metformin. 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 I am concerned that once he gets to his truck in [facility] that he will drive his tractor trailer back to [place]. This was discussed with him in detail that he cannot drive for at least a week. 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 All this was discussed with the primary service Admission and Anticipated Discharge Date Admission Date: May 25, 2020 Subjective He denies any chest pain or chest pressure this morning denies any shortness of breath. Denies any lightheadedness dizziness presyncope syncope. He does have some groin discomfort. Denies any pain in his right leg. He denies any chest discomfort like he had prior to coming to the hospital. He wants to get out of the hospital as soon as possible. Results & Data ([facility]) Vital Signs (Past 12 Hours) Vital Signs Temp Pulse Pulse Resp BP BP Pulse Ox 05/26/20 09:28 61 05/26/20 07:48 36.5 C 67 18 141/80 H 97 05/26/20 05:40 36.6 C 05/26/20 05:01 52 L 18 96/63 L 95 05/26/20 04:30 51 L 21 108/47 L 95 05/25/20 23:42 75 16 109/60 95 he is awake alert oriented x3 he is in no acute distress. H EENT: 2+ carotid upstrokes no evidence of carotid bruits Lungs: Globally decreased breath sounds but no rales rhonchi or wheezing Heart: Regular rate and rhythm no appreciable murmurs rubs or gallops Abdomen: Soft nontender senna positive bowel sounds Extremities: No clubbing cyanosis or edema he had a 2+ right femoral pulse his groin was mildly tender to touch there were no femoral bruits appreciated
--- NOTE | 2020-05-26 15:10 | Discharge Summary ---
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 Patient describes feeling a pressure pain deep in his chest that he rates at about a 20/10. He thought that perhaps this was secondary to the hotdogs he ate for dinner but when it did not azar and the fact that the pain reminded him of previous anginal episodes he decided to present to hospital. Pain is substernal but he also had some pain right between his shoulder blades just right of midline. He's not sure if this is radiation or it's own separate pain. He is not feeling short of breath denies nausea and vomiting, denies sweats, fevers, chills, cough, palpitations, prescyncope or syncope. He has a history of CAD s/p multiple stents and stent occlusion and revisions. Tells me he is unaware of any previous STEMI though knows he has bad CAD. Tells me he thinks his last echo was normal. He has some compliance with his medications though he cannot remember all of them and tells me he sometimes only takes one dose of his BID meds. Today he took metoprolol but notes that he believes the pills he took were at least one year old and was wondering if that effects their potency. He is on a daily aspirin ticagrelor, statin, and metoprolol but does not always take these as prescribed. He is from [place] and his previous interventions have been done there. Patient received 4-5 doses of nitrates which greatly decreased his pain but did not make it wholly disappear. On presentation to ED patient had vitals WNL, labwork significant for elevated glucose to 271 and elevated troponin to .751. EKG significant for bifascibular block and normal sinus rhythm, no acute ST segment changes. Chest XR negative. Admission Exam Per Admitting Provider Constitutional: well developed, well nourished, + acute distress, + ill appearing and average body habitus Eyes: PERRL, conjunctivae normal, anicteric sclerae ENMT: external ear and nose normal, oropharynx normal Respiratory: normal respiratory effort, lungs clear to auscultation Cardiovascular: Rate/Rhythm: regular rate and regular rhythm Heart Sounds: no gallop, no murmur and no cardiac rub Extremities: no calf tenderness, no pedal edema and no edema Gastrointestinal (Abdomen): normal bowel sounds, soft, nontender, no hepato splenomegaly Musculoskeletal: no cyanosis or clubbing, extremities motor strength 5/5 Skin: no rashes, warm and dry Neurologic: patellar DTR's 2+ bilat, sensation intact and PERRL, EOMI, accommodation nl, no face palsy, no dysarthria Psychiatric: Orientation: alert and oriented x 3 Affect: + anxious affect Principal Diagnosis NSTEMI, PCI Discharge Exam Discharge Data Allergies Allergy/AdvReac Type Severity Reaction Status Date / Time No Known Allergies Allergy Unverified 05/24/20 23:09 Consultations 05/24/20 22:59 ED Decision to Admit Stat 05/25/20 02:03 Consult Cardiology Routine 05/25/20 15:33 Consult Cardiac Rehabilitation Routine Procedures Performed Operation Date: 05/25/20 14:00 Actual Procedures p Cath, Left w/Cors Vent Grafts - Khanh Villafuerte MD s Drug Eluding Stent, SVG/LORIE, A - Khanh Villafuerte MD s Placement Art Occlusive Device - Khanh Villafuerte MD s Cineradiography w/Routine Exam - Khanh Villafuerte MD s Ultrasound Vascular Access - Khanh Villafuerte MD Ordered Studies 05/25/20 02:16 CT angio chest PE protocol Urgent 05/25/20 13:33 CL Cath Imgs for PACS use only Routine Hospital Course (1) Non-ST elevation (NSTEMI) myocardial infarction: 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 1) NSTEMI - s/p coronary cath w/ Dr. Villafuerte 05/25. Severe multivessel chronic [place] coronary artery disease -Patent left main to circumflex stent, patent OM1 stent 100% ostial LAD chronic total occlusion 100% proximal RCA chronic total occlusion. Right fills via [id number] collaterals -Acute 95% stenosis at vein graft to diagonal anastomosis -Patent RUSSELL to LAD -Known occluded SVG to RCA and jump graft to OM. -Successful PCI of SVG to diagonal anastomosis with single drug-eluting stent -Continue duel antiplatelet therapy with aspirin, ticagrelor indefinitely -Continue metoprolol daily, atorvastatin 80mg PO daily - Needs to cut back on smoking to reduce re-infarction odds. May do well with Chantix. Cardiac/Diabetic optimization: As an outpatient he would benefit from SGTL2 inhibitors or G LP 1 inhibitors, in addition to an LUCY or ARB. Discussed in detail with him that after a femoral approach for cath, he cannot drive for 1 week (particularly driving from [place] to [place]). Also discussed that particularly after having a cardiac event like this he should be getting a yearly stress test to maintain his CDL licensure. If his ejection fraction is 40% or less or he has coronary ischemia (I would not be surprised given the known occlusion of the right coronary artery and the great vein graft to the right coronary artery) he does not qualify for his CDL license. Total Time Total Time Spent Total Time Spent (In Minutes): <30 Discharge Plan Discharge Items Patient Disposition: Home - Self-Care Reason For Visit: NSTEMI Discharge Diagnosis: NSTEMI, PCI Activity: Per Instructions section Driving/Machine Use: Do not drive a truck long distances Non-emergency contact: Primary Care Provider Call non-emergency contact if: you have any medication questions, your symptoms worsen and your pain is concerning for you Follow-up/Referrals: PCP,NO [Primary Care Provider] - Diet: Carb Consistent or DM2 and Heart Healthy Addtl Attending Provider Instructions: You were seen in the hospital as an evaluation for chest pain that was found to be secondary to a 95% occlusion of an artery in your heart. Interventional Cardiology was able to place a stent through the blockage to allow blood to flow appropriately. Because of your past heart events requiring stenting and this new one, you will have to stay on Brilinta and Aspirin daily going forward. None of your other medications were changed, but it is imperative you continue taking your atorvastatin, metoprolol and glipizide to control your risk for heart attacks going forward and controlling your blood pressure. Your highest risk for a repeat event is in the 3 months following an NSTEMI or heart attack. Please take your medications and eat a low salt, diabetic diet to avoid increasing your chances of a repeat event. Quitting smoking (or even decreasing the number of cigarettes per day) and alcohol will also decrease your risk of having another heart attack drastically. Return to the ER and seek medical attention if you experience crushing chest pain, trouble breathing, an abnormal heart rhythm again. Pending Studies at Discharge: No Stand-Alone Forms: My [facility] BillGuard, Smoking Cessation Medications and DC Order Prescriptions: New Chantix Starting Month Box 0.5 mg (11)- 1 mg (42) tablets,dose pack 1 ea PO UD Qty: 53 RF: 0 Continued isosorbide mononitrate 30 mg Tablet Extended Release 24 Hr 0 mg PO DAILY RF: 0 aspirin 81 mg Tablet,Delayed Release (Dr/Ec) 81 mg PO DAILY RF: 0 metoprolol succinate 25 mg Tablet Extended Release 24 Hr 0 mg PO DAILY RF: 0 glipizide 5 mg Tablet 0 mg PO DAILY RF: 0 duloxetine [Cymbalta] 20 mg Capsule,Delayed Release(Dr/Ec) 0 mg PO DAILY RF: 0 Brilinta 60 mg Tablet 0 mg PO BID RF: 0 Statin Pill 1 tab PO DAILY RF: 0 Unknown Bp Pill 1 tab PO DAILY RF: 0 Discharge Orders: Discharge Order (Routine); Ordered 05/26/20 Ordered By: Jennifer Guadarrama/Other Patient Handouts: High Blood Sugar (Hyperglycemia), Hypoglycemia (Low Blood Sugar), Managing Type 2 Diabetes, Diabetes: Meal Planning, Eating Heart-Healthy Foods, ED Cardiac Cath Post Bleed Hematom, A1C Admission Data Admit Date/Time: 05/25/20 00:10 Attending Provider: Bean Sneed Admit Provider: Chip Spear Primary Care Provider: PCP,NO Other Providers: Sven Foreman ; Dhaval Ayers ; Jennifer Valladares Other Interventions: Discharge Summary Assessment (RN) Last Done: 05/26/20 12:16 Supervising Physician Co-Signing Physician Notes I personally examined the patient and verified all m[place] points of history and exam, discussed case, and agree with decision making with Dr Valladares. feeling good no chest pain no new complaints. wants to get out of hospital. cardiology notes no driving for a week. case management assisted in helping to get him home. vitals noted nad heent nc at mmm breathing unlabored no accessory muscles good effort skin no rashes no pallor or icterus neuro no focal deficits NSTEMI - stented. stable for home, med management and secondary risk reduction. smoking huge risk. discussed this extensively on 05/25, 05/26. might be good candidate for chantix (just would need followed closely for mood) - and after discussion with patient - was going to send Rx for starter pack and have him follow closely w PCP - but as issues came up with getting him home safely (due to no driving and distance to home) case management working on their aspect of discharge and pt left hospital -- when i then proceeded to try to send Rx to pharmacy - no pharmacy was entered. in f/u w PCP hopefully will be discussed further. med adherence also discussed 05/25 although he noted taht he's done much better at actually taking meds for most of the last 6 months. Resident Activity Tracking Resident Involvement: Resident Care Provided Care Provided: Adult Hospital Medicine
--- NOTE | 2020-05-26 17:02 | Billing Data ---
Date of Service May 26, 2020 Coding Level of Care Code D/C Day Management <30 mins
--- NOTE | 2020-05-26 20:00 | Billing Data ---
Date of Service May 26, 2020 Coding Level of Care Code 84977 Initial Inpt Care Lvl 3
== END 2020-05-26 14:16 | disposition home or self-care (01) | DRG 247 ==
LOC: ED 22:07 → SUATTDRO 05-25 00:10 → 1E 05-25 00:10